=== PATIENT | male | born 1940 | race Caucasian/White ===

== ENCOUNTER 2022-12-14 07:51 | Outpatient (CLI) | payer MEDICARE, SELFPAY ==
--- NOTE | 2022-12-14 08:04 | ECG_ITS ---
Measurements Intervals [place] Rate: 72 P: [place]: 0 QRS: -19 QRSD: 158 T: 36 QT: 419 QTc: 459 Interpretive Statements ATRIAL FIBRILLATION LEFT BUNDLE BRANCH BLOCK INFERIOR INFARCT OR DUE TO LBBB BASELINE ARTIFACT- I, II, III, AVR, AVL, AVF ABNORMAL ECG NO PREVIOUS ECG AVAILABLE FOR COMPARISON Electronically Signed On 12-14-2022 8:24:17 CDT by Shakir Carrion D.O.
[2022-12-14 08:56] LABS: Appearance Urine Clear (Clear); Bacteria Urine None Seen /hpf; Bilirubin Urine Negative (Negative); Blood Urine Negative (Negative); Color Urine Dark Yellow (Yellow); Glucose Urine UA Negative (Negative); Ketones Urine Negative (Negative); Leukocyte Esterase Ur Negative LEU/UL (Negative); Nitrate Urine Negative (Negative); Protein Urine 1+ mg/dL (Negative); RBC Urine 0-2 /hpf (0-2); Specific Grav Ur 1.019 (1.001-1.035); Squamous Epithelial Cell Urine None seen /hpf (Few); WBC Urine 0-5 /hpf
[2022-12-14 08:57] LABS: Add Urine Microscopic? YES
[2022-12-14 09:01] LABS: Hematocrit 48.2 % (42.0-52.0); Hemoglobin 16.1 g/dL (14.0-18.0); Mean Corpuscular HGB Conc 33.4 g/dl (32-36); Mean Corpuscular Hemoglobin 32.3 pg (26-34); Mean Corpuscular Volume 96.6 fl (80-100); Mean Platelet Volume 10.4 fl (7.4-10.4); Platelet Count Result 183 k/mm3 (150-375); Red Blood Count 4.99 M/mm3 (4.6-6.20); Red Cell Distribution Width 12.6 % (11.5-14.5); White Blood Count 6.9 K/mm3 (4.5-10.0)
[2022-12-14 09:05] LABS: Partial Thromboplastin Time 29.4 SECONDS (22.3-36.8)
[2022-12-14 09:06] LABS: Anion Gap 9 mmol/L (8-16); Blood Urea Nitrogen 17 mg/dL (9-20); Carbon Dioxide 29 mmol/L (22-30); Chloride 101 mmol/L (98-107); Estimated Glomerular Filt Rate 58; Glucose 65 mg/dL (65-110); Potassium 3.9 mmol/L (3.4-5.0); Sodium 139 mmol/L (137-145)
== END 2022-12-14 07:52 | disposition home or self-care (01) ==
LOC: ANHSURGERY 07:56
PROVIDERS: PCP Family Medicine; Visit Provider Neurological Surgery
DX: M48.061 Spinal stenosis, lumbar region without neurogenic claudication (principal); I10 Essential (primary) hypertension; Z01.818 Encounter for other preprocedural examination; I44.7 Left bundle-branch block, unspecified
CPT/HCPCS: 36415; 80048; 81001; 85027; 85610; 85730; 93005

== ENCOUNTER 2022-12-18 01:38 | Day surgery (SDC) | payer MEDICARE, SELFPAY ==
[2022-12-11 10:29] VITALS: BMI 27.1
--- NOTE | 2022-12-11 10:52 | PC.NURSE ---
PRE-OP INSTRUCTIONS, PLEASE READ CAREFULLY Report to the Outpatient Waiting Room, entrance under the green pavilion located off [facility], at time _1030_ on date _12/18/22_. Planned Procedure Time: _1230_. PACK A SMALL OVERNIGHT BAG AND LEAVE IN THE CAR Time changes happen often and if your time is changed the preop area will call you the afternoon before. - You and your visitor will be asked to self-screen and do not enter if you have any COVID symptoms. - A mask is optional within the hospital at this time. -VISITING HOURS 8AM-8PM Patients may have clear liquids (water, carbonated beverages, clear teas, apple juice) until 3 hours prior to surgery (0930 AM) with a maximum of 20 ounces. - No food from midnight until time of surgery Take the following medications with a SIP of water the morning of surgery: _GABAPENTIN, LEVOTHYROXINE, & PAIN PILL IF NEEDED_ DO NOT STOP ANY OF YOUR OTHER PRESCRIPTION MEDICATIONS PRIOR TO SURGERY ?EXCEPT THE FOLLOWING Medications to discontinue per DR. GANDHI - _BALANCE OF NATURE, Date to take last dose 12/07/22 (PER SPOUSE)_ Please no make-up, nail wolof, hairspray, perfume, deodorant, or body powder the day of surgery. No jewelry (including any body piercings) or valuables the day of surgery, leave them at home. Please take a shower or bath the night before, or the morning of, surgery with an antibacterial soap. Wear comfortable, loose fitting clothing. - Jewelry must be removed prior to entering the operating room. Rings and piercings that are not removed may be cut off. - The hospital will not accept responsibility for valuables. - Please leave all valuables, including medications, at home the day of surgery. If you are going home after surgery, a licensed emergency vehicle driver must drive you home. - NO public transportation without another adult if you receive anesthesia. - We recommend that an adult stay with you for 24 hours following discharge. - We also recommend that you do not drive, make important decision, drink alcoholic beverages, or take any drugs that were not prescribed by your health care provider for at least 24 hours after your discharge time. Follow any additional instructions given to you from your surgeon. If you or anyone in your household have experienced Covid symptoms in the past week, please notify your surgeon or the nurse liaison at the phone number below for possible testing. Telephone instructions given to _PATIENT'S SPOUSE (SHANELLE)_and asked if any additional questions and then verbalized understanding. Patient advised to call surgeon office or pre surgery nurse liaison [phone] if any additional questions.
--- NOTE | 2022-12-12 14:52 | PC.NURSE ---
PRE-OP INSTRUCTIONS, PLEASE READ CAREFULLY Report to the Outpatient Waiting Room, entrance under the green pavilion located off [facility], at time _1030_ on date _12/18/22_. Planned Procedure Time: _1230_. PACK A SMALL OVERNIGHT BAG AND LEAVE IN THE CAR Time changes happen often and if your time is changed the preop area will call you the afternoon before. - You and your visitor will be asked to self-screen and do not enter if you have any COVID symptoms. - A mask is optional within the hospital at this time. -VISITING HOURS 8AM-8PM Patients may have clear liquids (water, carbonated beverages, clear teas, apple juice) until 3 hours prior to surgery (0930 AM) with a maximum of 20 ounces. - No food from midnight until time of surgery Take the following medications with a SIP of water the morning of surgery: _GABAPENTIN, PROPRANOLOL & PAIN PILL IF NEEDED_ DO NOT STOP ANY OF YOUR OTHER PRESCRIPTION MEDICATIONS PRIOR TO SURGERY ?EXCEPT THE FOLLOWING Medications to discontinue per DR. GANDHI - _BALANCE OF NATURE, Date to take last dose 12/07/22 (PER SPOUSE)_ Please no make-up, nail korean, hairspray, perfume, deodorant, or body powder the day of surgery. No jewelry (including any body piercings) or valuables the day of surgery, leave them at home. Please take a shower or bath the night before, or the morning of, surgery with an antibacterial soap. Wear comfortable, loose fitting clothing. - Jewelry must be removed prior to entering the operating room. Rings and piercings that are not removed may be cut off. - The hospital will not accept responsibility for valuables. - Please leave all valuables, including medications, at home the day of surgery. If you are going home after surgery, a licensed yard truck driver must drive you home. - NO public transportation without another adult if you receive anesthesia. - We recommend that an adult stay with you for 24 hours following discharge. - We also recommend that you do not drive, make important decision, drink alcoholic beverages, or take any drugs that were not prescribed by your health care provider for at least 24 hours after your discharge time. Follow any additional instructions given to you from your surgeon. If you or anyone in your household have experienced Covid symptoms in the past week, please notify your surgeon or the nurse liaison at the phone number below for possible testing. Telephone instructions given to _PATIENT'S SPOUSE (SHANELLE)_and asked if any additional questions and then verbalized understanding. Patient advised to call surgeon office or pre surgery nurse liaison [phone] if any additional questions.
[2022-12-18] VITALS (12 sets, daily range): BP systolic 114–153; BP diastolic 67–95; PULSE 73–92; RESP 12–18; TEMP 36–36.6; O2SAT 93–100; BMI 25.7
--- NOTE | ~2022-12-18 | XR_ITS ---
XR fluoroscopy no charge Procedure: L2-5 laminectomy TECHNIQUE: Fluoroscopy used during L2-5 laminectomy procedure performed by [Nicko Gutierrez] on 12/18/2022. 3 seconds of fluoroscopy with a single images captured. FINDINGS: Correlate with procedure note. IMPRESSION: Fluoroscopy used during L2-5 laminectomy procedure. Reviewed, dictated and finalized at location A.
--- NOTE | 2022-12-18 07:45 | WPDANESEPPF ---
Anes - Initial Pre Proc Eval Procedure: Operation Date: 12/18/22 12:30 Proposed Procedures p L 2-5 Laminectomy - Power Hernandez MD Date/Time: 12/18/22 07:45 Surgeon: Power Hernandez MD Pre Op Diagnosis: L 2-5 stenosis Patient Data Age: 81 Gender: M Height: 1.83 m Weight: 90.9 kg Allergies Allergy/AdvReac Type Severity Reaction Status Date / Time ofloxacin [From Floxin] AdvReac Mild Altered Verified 12/11/22 10:23 Mental State Home Medications Medication Instructions Recorded Confirmed Type Balance Of Nature 3 tab-cap TID 12/11/22 12/18/22 History finasteride 5 mg tablet 5 mg HS 12/11/22 12/18/22 History gabapentin 300 mg capsule 300 mg BID 12/11/22 12/18/22 History hydrocodone 10 mg-acetaminophen 1 tablet TID PRN Pain 12/11/22 12/11/22 History 325 mg tablet levothyroxine 25 mcg tablet 25 mcg HS 12/11/22 12/18/22 History losartan 25 mg tablet 25 mg HS 12/11/22 12/18/22 History omeprazole 40 mg capsule,delayed 40 mg DAILY 12/11/22 12/18/22 History release propranolol 80 mg tablet 80 mg BID 12/11/22 12/18/22 History Patient hx anesthesia problems: none Family hx anesthesia problems: none Results Review: All pre-operative results and documents have been reviewed as part of the pre-operative evaluation. [facility] Past Medical History Medical History (Updated 12/18/22 @ 07:46 by Dejuan Peterson DO) Atrial fibrillation Chronic, continuous use of opioids GERD (gastroesophageal reflux disease) Hypertension Hypothyroidism Osteoarthritis Surgical History Surgical History (Updated 12/18/22 @ 07:46 by Dejuan Peterson DO) History of appendectomy History of cholecystectomy Family History Family History (Updated 10/08/22 @ 12:10 by Sil Sanz MA) Father Hypertension Cerebrovascular accident Mother Cancer Social History Social History (Updated 10/08/22 @ 12:14 by Sil Sanz MA) Smoking status: Former smoker Tobacco type: smokeless tobacco Smokeless tobacco user: chewing tobacco Second hand tobacco smoke exposure: No Additional smoking assessment comments: STATED 4-5PK/DAY/53YR-QUIT 1985, CURRENTLY CHEWS TOBACCO Alcohol intake: current Drinks per week: 7 Alcohol use details: Occasional Substance use: never Substance use type: does not use Lack of Food: Never True Current Housing: I Have Housing Living arrangements: with family Gender identity (if verbalized by the patient): Male Sexual Orientation (if Verbalized by the Patient): Straight or Heterosexual Spiritual care concerns: No Agree to blood products: Yes Anes - Eval Final PreProcedure Day of Procedure 12/18/22 07:45 Patient weight: overweight Heart: regular rate and rhythm Lungs: clear to auscultation Airway: Mallampati scale class II Neurological: alert and oriented Last oral intake: >/= 8 hours ASA classification: III Emergent: no Anesthetic plan: proceed Anesthesia type and monitoring: general ETT and standard monitoring Results Review: All pre-operative results and documents have been reviewed as part of the pre-operative evaluation. Informed Consent: The patient's anesthetic plan and its attendant risks and benefits were discussed with the patient/family/POA. Questions were solicited and answers provided to the satisfaction of the patient/family/POA.
--- NOTE | 2022-12-18 08:05 | ECG_ITS ---
Measurements Intervals [place] Rate: 87 P: [place]: 0 QRS: -33 QRSD: 158 T: 57 QT: 418 QTc: 504 Interpretive Statements ATRIAL FIBRILLATION LEFT AXIS DEVIATION LEFT BUNDLE BRANCH BLOCK INFERIOR INFARCT OR DUE TO LBBB ABNORMAL ECG COMPARED TO ECG 12/14/2022 08:22:23 NO SIGNIFICANT CHANGES Electronically Signed On 12-18-2022 12:09:37 CDT by Shakir Carrion D.O.
[2022-12-18] MEDS: LACTATED RINGERS 1,000 ML 30 ML IV CONT (11:02)
--- NOTE | 2022-12-18 12:34 | PM.IMHP ---
H&P: HPI History of Present Illness Date/Time: 12/18/22 12:34 Chief Complaint: Neurogenic claudication, back and leg pain Narrative: Adi is a 81-year-old gentleman with back and leg pain and claudication related to lumbar stenosis at L2-5 presents for decompression by way of laminectomy. He has not changed appreciably since we last saw him. He does not have specific muscle group weakness or dermatomal numbness. He is not having bowel or Review of Systems Constitutional: Comments: Patient denies shortness of breath, cough, fever, chills, nausea, vomiting, weight loss, weight gain, chest pain, dysuria. He has back and leg pain claudication as above. His review of systems is otherwise negative on 12 systems except as noted elsewhere. [facility] Past Medical History Medical History (Updated 12/18/22 @ 07:46 by Dejuan Peterson DO) Atrial fibrillation Chronic, continuous use of opioids GERD (gastroesophageal reflux disease) Hypertension Hypothyroidism Osteoarthritis Surgical History Surgical History (Updated 12/18/22 @ 07:46 by Dejuan Peterson DO) History of appendectomy History of cholecystectomy Family History Family History (Updated 10/08/22 @ 12:10 by Sil Sanz MA) Father Hypertension Cerebrovascular accident Mother Cancer Social History Social History (Updated 10/08/22 @ 12:14 by Sil Sanz MA) Smoking status: Former smoker Tobacco type: smokeless tobacco Smokeless tobacco user: chewing tobacco Second hand tobacco smoke exposure: No Additional smoking assessment comments: STATED 4-5PK/DAY/53YR-QUIT 1985, CURRENTLY CHEWS TOBACCO Alcohol intake: current Drinks per week: 7 Alcohol use details: Occasional Substance use: never Substance use type: does not use Lack of Food: Never True Current Housing: I Have Housing Living arrangements: with family Gender identity (if verbalized by the patient): Male Sexual Orientation (if Verbalized by the Patient): Straight or Heterosexual Spiritual care concerns: No Agree to blood products: Yes Meds Home Medications and Allergies Home Medications Medication Instructions Recorded Confirmed Type Balance Of Nature 3 tab-cap TID 12/11/22 12/18/22 History finasteride 5 mg tablet 5 mg HS 12/11/22 12/18/22 History gabapentin 300 mg capsule 300 mg BID 12/11/22 12/18/22 History hydrocodone 10 mg-acetaminophen 1 tablet TID PRN Pain 12/11/22 12/11/22 History 325 mg tablet levothyroxine 25 mcg tablet 25 mcg HS 12/11/22 12/18/22 History losartan 25 mg tablet 25 mg HS 12/11/22 12/18/22 History omeprazole 40 mg capsule,delayed 40 mg DAILY 12/11/22 12/18/22 History release propranolol 80 mg tablet 80 mg BID 12/11/22 12/18/22 History Allergies Allergy/AdvReac Type Severity Reaction Status Date / Time ofloxacin [From Floxin] AdvReac Mild Altered Verified 12/11/22 10:23 Mental State Vital Signs Vital Signs - 24 hr 12/18/22 10:23 Temperature 96.8 F L Pulse Rate 83 Respiratory Rate 18 Blood Pressure 151/95 H Pulse Oximetry 99 Oxygen Delivery Room Air Exam Narrative: Strength is 5/5 in all muscle groups of the bilateral lower extremities. Sensation is intact to light touch throughout the lower extremities. Breathing is nonlabored Regular rate and rhythm Assessment and Plan Assessment and plan (1) Lumbar stenosis: Code(s): M48.061 - Spinal stenosis, lumbar region without neurogenic claudication Status: Acute Assessment and Plan: Adi is an 81-year-old gentleman with back and leg pain related to the stenosis at L2-5 presents for laminectomy. I described to him again that operation, its risks, potential benefits, the operative postoperative course in detail answered all his questions personally. He indicates understanding and elects to proceed with that operation.
--- NOTE | 2022-12-18 12:35 | WPDHPUPDATE1 ---
History and Physical Update Update Date/Time: 12/18/22 12:35 History and Physical has been reviewed, including an updated exam of the patient. There are NO changes in the patient's condition. Risks, benefits, and alternatives have been discussed and questions answered. Patient agrees to proceed with procedure.
[2022-12-18] MEDS: ceFAZolin 2 GM/D5W 50 ML 2 GM/50 ML BAG IVPB (12:44)
[2022-12-18] MEDS: LIDO 1%/EPINEPHRINE 1:100,000 50 ML VIAL 10 ML INFILTRATE (13:19)
[2022-12-18] MEDS: LORATADINE 10 MG TABLET PO (15:05)
--- NOTE | 2022-12-18 16:28 | ADMGEN ---
This patient, Adi Jain, was admitted to Medical Room 349-01. Patient/family oriented to hospital policies and general routines including ID bracelet, bed and alarms, visiting hours, pain management, procedures, bathroom and other care routines, personal items, smoking policy, room service/diet, and visiting hours. Information on how to activate the Rapid Response Team has been discussed. Patient/Family are encouraged to report perceived risks to care and to ask questions if they do not understand what they are told or what they should do.
[2022-12-18] MEDS: GABAPENTIN 300 MG CAPSULE BY MOUTH (17:37)
[2022-12-18] MEDS: DOCUSATE SODIUM 100 MG CAPSULE PO (21:03)
[2022-12-18] MEDS: FINASTERIDE 5 MG TABLET BY MOUTH (21:03)
[2022-12-18] MEDS: LEVOTHYROXINE SODIUM 25 MCG TABLET BY MOUTH (21:03)
[2022-12-18] MEDS: LOSARTAN POTASSIUM 25 MG TABLET BY MOUTH (21:03)
[2022-12-19] MEDS: HYDROcodone/acetaminophen (*CRX) 10-325 MG TABLET 1 TAB PO (04:19)
[2022-12-19 05:25] VITALS: BP 140/82; PULSE 91; RESP 18; TEMP 36.3; O2SAT 98
--- NOTE | 2022-12-19 07:26 | WPDANESPN ---
Anes - Prog Note Post-Op Date/Time: 12/19/22 07:26 Cardiovascular status: normal Respiratory status: normal Airway patency: baseline Mental status: baseline Post-Op hydration status: normal Vital Signs: Last Vital Signs Temp 97.4 F L 12/19/22 05:25 Pulse 91 12/19/22 05:25 Resp 18 12/19/22 05:25 BP 140/82 12/19/22 05:25 Pulse Ox 98 12/19/22 05:25 O2 Del Method Room Air 12/18/22 20:00 O2 Flow Rate 8 12/18/22 14:50 Pain Score (VAS): 0/10 I/O: Intake & Output 12/18/22 12/18/22 12/19/22 15:59 23:59 07:59 Intake Total 1050 480 650 Output Total 250 350 Balance 1050 230 300 Post-procedural complaints: none Patient Feedback: Patient satisfied with anesthetic care.
[2022-12-19] MEDS: DOCUSATE SODIUM 100 MG CAPSULE PO (08:20)
[2022-12-19] MEDS: GABAPENTIN 300 MG CAPSULE BY MOUTH (08:20)
[2022-12-19 10:40] VITALS: BP 123/80; PULSE 85; RESP 18; TEMP 36.7; O2SAT 97
--- NOTE | 2022-12-19 16:32 | PCPTNOTE ---
On 12/19/22, the student, SARWAT Argueta, provided care and completed [facility] documentation on this patient. I have reviewed the student's documentation and agree with the findings.
--- NOTE | 2022-12-24 13:12 | W.PM.PROC2 ---
Procedure Note - Detailed Date of Procedure 12/24/22 Pre-op Diagnosis L 2-5 stenosis Post-op Diagnosis Same Procedure Performed L2-5 laminectomy Surgeon Power Hernandez MD Anesthesia General Description of Procedure the patient was brought to the operating room in the supine position, was sedated, intubated and placed under general anesthesia in routine fashion. He was then turned into the prone position on Kalia frame. Area of operation on his back was examined, marked for incision, prepped and draped in routine sterile fashion. Incision was marked over the L2-3 5 lamina in the midline. This area was injected with 0.5% lidocaine with [id number] epinephrine. Intravenous antibiotics given prior to incision. Incision was made with a 10 blade scalpel down to the lumbodorsal fascia. A subperiosteal dissection of the muscle soft tissue away from spinous process lamina at L2-5 was performed with a subperiosteal elevator and Bovie cautery. A verifying x-rays obtained to verify the level of operation. The L2-5 spinous processes were removed with a Lisha rongeur. A Midas Thuan drill with an Napoleon bit was used to thin the lamina in the midline and to the soft contents the canal were encountered. The yellow ligament was lifted removed piecemeal in the midline using Kerrison punches. In the lateral epidural space a plane was carefully dissected using a curved curette and Kerrison punches were used to remove additional overgrown bone and ligament from superiorly to inferiorly. This was done until a [place] instrument could be placed in the lateral epidural space to confirm lack compression. The wound was then copiously irrigated with bacitracin irrigation all bleeding stopped with bipolar and Bovie cautery and Gelfoam thrombin powder. The wound was then closed in layered fashion with 2-0 Vicryl interrupted sutures in the lumbodorsal fascia and Miguel Angel's layer. 3-0 Vicryl buried interrupted sutures were placed in the dermis and skin was closed with a running 4-0 Monocryl subcuticular stitch and dressed with Dermabond. A medium Hemovac drain left in the subfascial position. After the inferior right of the incision prior to closure. Patient was loud wake up in the operating room and was taken to the recovery room in stable condition. There were no immediate complications of this operation. All counts were reported correct in the case. Blood loss was 50 cc. The patient was neurologically at his baseline postoperatively. CPT codes: 52347, 86055 x 3 Estimated Blood Loss -50.0 IV Fluids 1,000 Complications None Condition Stable Disposition PACU [facility] Billing Surgery - Charge Forward: Surgery Billing
== END 2022-12-19 14:28 | disposition home or self-care (01) ==
LOC: ANHSURGERY 10:18 → ANH3MED 15:49
PROVIDERS: PCP Family Medicine; Visit Provider Neurological Surgery
PROC: (CPT 63005; principal; 2022-12-18 12:30)
DX: M48.062 Spinal stenosis, lumbar region with neurogenic claudication (principal); I48.91 Unspecified atrial fibrillation; I10 Essential (primary) hypertension; E03.9 Hypothyroidism, unspecified; K21.9 Gastro-esophageal reflux disease without esophagitis; Z79.891 Long term (current) use of opiate analgesic; F17.220 Nicotine dependence, chewing tobacco, uncomplicated
CPT/HCPCS: 63047; 63048 ×2; 36415; 80048; 81001; 85027; 85610; 85730; 93005; 97161; 97165; 97535; 99199; A9270; J0330; J0690; J1100; J1170; J2371; J2405; J2704; J3010; J7120